=== PATIENT | female | born 1985 | race Two or more races ===

== ENCOUNTER 2016-10-15 20:51 | Emergency (ER) | payer MEDICAID ==
[~2016-10-15] VITALS: Ht 154.9 cm; Wt 86.2 kg
[2016-10-15 20:54] VITALS: BP 126/73
[2016-10-15 21:30] LABS: Urine Bilirubin Negative (Negative); Urine Color Yellow (Yellow); Urine Glucose Normal (Normal); Urine Ketone Negative (Negative); Urine Mucus FEW (None Seen); Urine Nitrite Negative (Negative); Urine RBC 2 /hpf (0 - 4); Urine Squamous Epithelial Cell MOD /hpf (<5); Urine Urobilinogen Normal (Negative); Urine pH 6.5 (5.0-8.0)
[2016-10-15 21:32] LABS: Basophils # (auto) 0 uL; Basophils % (auto) 0.3 % (0.0-2.0); CONDITION Y; Eosinophils # (auto) 0.2 uL; Eosinophils % (auto) 2.2 % (0.0-7.0); Hemoglobin 13.4 g/dL (12.2-16.2); Lymphocytes # (auto) 2.1 uL; Lymphocytes % (auto) 26.7 % (10.0-50.0); Mean Corpuscular Hemoglobin 30.5 pg (28.0-32.0); Mean Corpuscular Hgb Conc. 34.3 g/dL (32.0-36.0); Mean Corpuscular Volume 88.9 fL (80.0-100.0); Mean Platelet Volume 9.7 fL (7.4-10.4); Monocytes # (auto) 0.4 uL; Monocytes % (auto) 5.6 % (0.0-12.0); Neutrophils # (auto) 5.1 uL; Neutrophils % (auto) 65.2 % (37.0-80.0); Platelet Count (auto) 294 10^3/uL (140-450); Red Cell Distribution Width 13.6 % (11.6-16.0); White Blood Cell 7.9 10^3/uL (4.4-10.8)
[2016-10-15 21:39] LABS: Urine Blood 2+ /uL (Negative)
[2016-10-15 21:50] LABS: Albumin 3.6 g/dL (3.4-5.0); BUN/Creatinine Ratio 14.8; Calcium 8.5 mg/dL (8.5-10.1)
[2016-10-15 21:53] LABS: Bilirubin, Total 0.2 mg/dL (0.2-1.0); Total Protein 7.6 g/dL (6.4-8.2)
== END 2016-10-15 23:48 | disposition home or self-care (01) ==
LOC: ER 20:56
DX: K52.9 Noninfective gastroenteritis and colitis, unspecified (principal); N39.0 Urinary tract infection, site not specified
CPT/HCPCS: 36415; 80053; 81001; 81025; 85025